=== PATIENT | male | born 1995 | race Caucasian/White ===

== ENCOUNTER 2022-09-03 12:16 | Day surgery (SDC) | payer OTHER ==
[~2022-09-03] VITALS: Ht 170.2 cm; Wt 138.3 kg
[2022-09-03] MEDS ORDERED: fentaNYL citrate 0.05 MG/ML VIAL ONE (15:19)
[2022-09-03] MEDS ORDERED: LIDOCAINE 2% 100 MG/5 ML UJET TP ONE (15:20)
[2022-09-03] MEDS ORDERED: fentaNYL citrate 0.05 MG/ML VIAL IVP ONE (16:55)
== END 2022-09-03 16:25 | disposition home or self-care (01) ==
LOC: MDS 12:16 → MMU 12:18 → MDS 16:25
PROVIDERS: ATTEND Internal Medicine Gastroenterology
DX: K62.5 Hemorrhage of anus and rectum (principal); K62.89 Other specified diseases of anus and rectum; Z98.84 Bariatric surgery status; Z98.890 Other specified postprocedural states
CPT/HCPCS: 45330; J3010; 45350